=== PATIENT | male | born 1950 | race Caucasian/White ===

== ENCOUNTER → 2016-10-07 | Outpatient (CLI) | payer OTHER | LOC: FIMAGING 16:46 | PROVIDERS: ATTEND Physician Assistant | DX: M17.12 Unilateral primary osteoarthritis, left knee (principal); M25.762 Osteophyte, left knee ==

== ENCOUNTER 2018-06-20 15:49 | Emergency (ER) | payer OTHER ==
--- NOTE | 2018-06-20 16:05 | EDPHY ---
H & P Time Seen by Provider: 06/20/18 15:58 HPI/ROS: Chief complaint. Headache HPI. 67-year-old male presents emergency department with complaint of numbness and tingling to the right cheek for 3 months. He feels like when he comes out from Novocain from dental procedures though he has not had dental procedure. Now he feels he starting to drool out the right side of his mouth. However ever today he developed headache that is upper left and feels like it is pulsing. He has no change in his vision. No weakness. He is walking okay without stumbling. His PCP felt he was somewhat shaky on his feet. He denies chest pain or shortness of breath. No fever. No abdominal pain or vomiting or diarrhea. ROS 10 systems were reviewed and negative with the exception of the elements mentioned in the history of present illness Past Medical/Surgical History: Healthy Social History: , nonsmoker, no alcohol Smoking Status: Never smoked Physical Exam: General Appearance: Alert pleasant well-developed male mild distress with vitals significant for heart rate 105 Eyes: Pupils equal and round no pallor or injection. ENT, pharynx without injection. Speaking in full sentences. No stridor Respiratory: There are no retractions, lungs are clear to auscultation. Cardiovascular: Regular rate and rhythm. Gastrointestinal: Abdomen is soft and nontender, no masses, bowel sounds normal. Neurological: Awake and alert, sensory and motor exams grossly normal. Speech is normal. Cranial nerves are normal other than subjective sensation of numbness to the right cheek. Possibly slight abnormal [id number] with left hand. Gait appears normal. No pronator drift Skin: Warm and dry, no rashes. Musculoskeletal: Neck is supple nontender. Extremities symmetrical, full range of motion. Psychiatric: Patient is oriented X 3, there is no agitation. Constitutional: Initial Vital Signs Temperature (C) 36.7 C 06/20/18 15:53 Heart Rate 105 H 06/20/18 15:53 Respiratory Rate 18 06/20/18 15:53 Blood Pressure 159/86 H 06/20/18 15:53 O2 Sat (%) 96 06/20/18 15:53 O2 Delivery Mode Room Air Allergies/Adverse Reactions: Echinacea Allergy (Intermediate, Verified 06/20/18 15:53) ciprofloxacin [Ciprofloxacin] Allergy (Verified 06/20/18 15:53) Home Medications: Medication Instructions Recorded NO HOME MEDS 07/12/10 Amoxicillin/Clavulanate Pot 875 mg PO BID #14 tab 06/20/18 [Augmentin 875 MG TAB (*)] Medical Decision Making - Diagnostics Imaging Results: Imaging Impressions Brain MRI 06/20/18 16:16 Impression: Obstructed, acute right maxillary sinusitis. Results discussed with Dr. Mckay Chopra. Neck MRA 06/20/18 16:16 Impression: Negative magnetic resonance angiogram of the neck. Carotid arteries are widely patent. The proximal vertebral arteries are not included on this study. 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 Results called to Dr. Mckay Chopra at 6:00 PM Measurement of carotid stenosis is based on the residual internal carotid diameter with [place] Symptomatic Carotid Endarterectomy Trial (NASCET) based stenosis levels. MRI neck reviewed by me and discussed with Dr. Cronin shows no flow-limiting lesions. MRI brain shows no evidence for tumor, bleed, CVA. He has a completely occluded right maxillary sinus Procedures: Tylenol for headache ED Course/Re-evaluation: Re-evaluation 5:45 p.m.. Patient is stable and playing cards with his daughter. He just got back from MRI Re-evaluation by me at 6:20 p.m.. Patient and I discussed imaging and lab results. We discussed treatment plan including criteria for return importance of follow-up and further evaluation. He expresses understanding and agreement Differential Diagnosis: I considered CVA, intracranial bleeding, brain tumor. Patient has right-sided maxillary sinusitis which is in the area where he has altered sensation. - Data Points Laboratory Results: Laboratory Results 06/20/18 16:22 06/20/18 16:22 06/20/18 06/20/18 16:22 16:22 WBC 5.56 10^3/uL 10^3/uL (3.80-9.50) RBC 4.60 10^6/uL 10^6/uL (4.40-6.38) Hgb 15.3 g/dL g/dL (13.7-17.5) Hct 42.1 % % (40.0-51.0) MCV 91.5 fL fL (81.5-99.8) MCH 33.3 pg pg (27.9-34.1) MCHC 36.3 g/dL g/dL (32.4-36.7) RDW 11.9 % % (11.5-15.2) Plt Count 207 10^3/uL 10^3/uL (150-400) MPV 8.4 fL L fL (8.7-11.7) Neut % (Auto) 65.9 % % (39.3-74.2) Lymph % (Auto) 21.6 % % (15.0-45.0) [place] % (Auto) 10.6 % % (4.5-13.0) Eos % (Auto) 1.3 % % (0.6-7.6) Baso % (Auto) 0.4 % % (0.3-1.7) Nucleat RBC Rel Count 0.0 % % (0.0-0.2) Absolute Neuts (auto) 3.67 10^3/uL 10^3/uL (1.70-6.50) Absolute Lymphs (auto) 1.20 10^3/uL 10^3/uL (1.00-3.00) Absolute Monos (auto) 0.59 10^3/uL 10^3/uL (0.30-0.80) Absolute Eos (auto) 0.07 10^3/uL 10^3/uL (0.03-0.40) Absolute Basos (auto) 0.02 10^3/uL 10^3/uL (0.02-0.10) Absolute Nucleated RBC 0.00 10^3/uL 10^3/uL (0-0.01) Immature Gran % 0.2 % % (0.0-1.1) Immature Gran # 0.01 10^3/uL 10^3/uL (0.00-0.10) Sodium 136 mEq/L mEq/L (135-145) Potassium 4.4 mEq/L mEq/L (3.5-5.2) Chloride 100 mEq/L mEq/L (97-110) Carbon Dioxide 26 mEq/l mEq/l (22-31) Anion Gap 10 mEq/L mEq/L (6-14) BUN 10 mg/dL mg/dL (7-23) Creatinine 0.7 mg/dL mg/dL (0.7-1.3) Estimated GFR > 60 Glucose 158 mg/dL H mg/dL (70-100) Calcium 9.6 mg/dL mg/dL (8.5-10.4) Medications Given: Discontinued Medications Acetaminophen (Tylenol) 1,000 mg PO EDNOW ONE Stop: 06/20/18 16:18 Last Admin: 06/20/18 16:24 Dose: 1,000 mg Sodium Chloride (Ns) 1,000 mls @ 0 mls/hr IV EDNOW ONE; Wide Open PRN Reason: Protocol Stop: 06/20/18 16:16 Last Admin: 06/20/18 16:24 Dose: 1,000 mls Departure - Departure Disposition: Home, Routine, Self-Care Clinical Impression: Sinusitis Qualifiers: Sinusitis location: maxillary Chronicity: acute Recurrence: non-recurrent Qualified Code(s): J01.00 - Acute maxillary sinusitis, unspecified Condition: Good Instructions: Sinusitis (ED) Additional Instructions: Augmentin as antibiotic Flonase nasal spray which he may purchase [id number] or Jose Antonio-Synephrine spray Your blood sugar is elevated today. Begin to watch your diet and have your blood sugar rechecked by your regular healthcare provider Return for worsening symptoms Recheck in 3-4 days if not improving Referrals: Meagan Miles PA [Primary Care Provider] - 3-4 days, if not improved Prescriptions: Amoxicillin/Clavulanate Pot [Augmentin 875 MG TAB (*)] 875 mg PO BID #14 tab
[2018-06-20] MEDS ORDERED: NS 1,000 ML IV ONE (16:15)
[2018-06-20] MEDS ORDERED: ACETAMINOPHEN 500 MG TAB PO ONE (16:17)
[2018-06-20 16:31] LABS: PLATELET COUNT 207 10^3/uL (150-400)
[2018-06-20] MEDS ORDERED: GADOBUTROL 10 ML VIAL IVP ONE (16:50)
[2018-06-20 18:43] VITALS: BP 143/88
== END 2018-06-20 18:43 | disposition home or self-care (01) ==
DX: J01.00 Acute maxillary sinusitis, unspecified (principal); E86.9 Volume depletion, unspecified
CPT/HCPCS: 70548; 70553; A9585; 82607-90

== ENCOUNTER → 2018-09-01 | Outpatient (CLI) | payer OTHER | LOC: GIMAGING 10:45 | PROVIDERS: ATTEND Nurse Practitioner Acute Care | DX: M18.12 Unilateral primary osteoarthritis of first carpometacarpal joint, left hand (principal) | CPT/HCPCS: 73110-PO ==